=== PATIENT | female | born 1990 | race Caucasian/White ===

== ENCOUNTER 2024-04-05 18:09 | Emergency (ER) | payer OTHER, SELFPAY ==
[2024-04-05 18:19] VITALS: BP 120/75; PULSE 72; TEMP 37.3; O2SAT 99
--- NOTE | 2024-04-05 18:21 | XR_ITS ---
[address] [address] Patient Name: WILBUR HIGGINBOTHAM MRN: [id number] date: 1990 Sex: F Assigned Patient Location: ER Current Patient Location: ED.MAIN Accession/Order Number: [id number] Exam Date: 04/05/2024 18:50 Report Date: 04/05/2024 19:57 At the request of: GOLDY BURTON Procedure: XR hip RT 2V w/ pelvis Exam: Radiographs: XR femur RT 2V, XR hip RT 2V w/ pelvis Reason for exam: right leg pain Comparison: None XR/XR hip RT 2V w/ pelvis IMPRESSION: Unremarkable right hip radiographs. Unremarkable right femur radiographs. Electronically authenticated by: RAJEEV STORY Date: 04/05/2024 19:57
--- NOTE | 2024-04-05 18:21 | XR_ITS ---
[address] [address] Patient Name: WILBUR HIGGINBOTHAM MRN: [id number] date: 1990 Sex: F Assigned Patient Location: ER Current Patient Location: ED.MAIN Accession/Order Number: [id number] Exam Date: 04/05/2024 18:50 Report Date: 04/05/2024 19:57 At the request of: GOLDY BURTON Procedure: XR femur RT 2V Exam: Radiographs: XR femur RT 2V, XR hip RT 2V w/ pelvis Reason for exam: right leg pain Comparison: None XR/XR femur RT 2V IMPRESSION: Unremarkable right hip radiographs. Unremarkable right femur radiographs. Electronically authenticated by: RAJEEV STORY Date: 04/05/2024 19:57
--- NOTE | 2024-04-05 18:23 | ED.GENADUL1 ---
HPI HPI - General Adult General Chief complaint: Extremity Injury, Lower Stated complaint: LEG/HIP PAIN Time Seen by Provider: 04/05/24 18:14 Source: patient Mode of arrival: walk-in History of Present Illness HPI narrative: Patient is a 33-year-old female who ambulated into the emergency department with complaint of right hip and thigh pain that developed today. She denies any mechanism of injury or trauma. She states that she was walking from [place] to [place] and stopped at this hospital due to pain. She does not believe that walking 12.8 miles from [place] to [facility] could have caused her pain, she believes that the right thigh pain started this morning. She denies a possibility of . She has not noticed any swelling, redness of the leg. No peripheral paresthesias. Related Data Home Medications ?Medication ?Instructions ?Recorded ?Confirmed dextroamphetamine-amphetamine ER 50 mg PO DAILY 04/05/24 04/05/24 50 mg capsule,3 bead,ext release 24hr (Mydayis) Previous Rx's ?Medication ?Instructions ?Recorded methocarbamol 750 mg tablet 750 mg PO TID PRN pain #20 tabs 04/05/24 methylprednisolone 4 mg tablets in See Rx Instructions .Route 04/05/24 a dose pack (Medrol (Zach)) .COMPLEX #21 ea Allergies Allergy/AdvReac Type Severity Reaction Status Date / Time ciprofloxacin (From Cipro) Allergy Unknown Verified 04/05/24 18:19 ibuprofen (From Motrin) Allergy Unknown Verified 04/05/24 18:19 naproxen Allergy Unknown Verified 04/05/24 18:19 Opioid HPI Opioid Management Most Recent Opioid Data: No Data to Display Review of Systems ROS Constitutional Denies: fever or chills Ears, nose, mouth, and throat Denies: throat pain or nasal congestion Cardiovascular Denies: chest pain Respiratory Denies: shortness of breath Gastrointestinal Denies: abdominal pain, nausea or vomiting Musculoskeletal Reports: extremity pain and joint pain; Denies: back pain or neck pain Integumentary/Breast Denies: rash Neurological Denies: numbness in extremities or weakness in extremities Hematologic/Lymphatic Denies: easy bruising or easy bleeding Exam Narrative Exam Narrative: Gen.: Awake, alert, in no distress, spastic movements of the head and upper extremities Head: Normocephalic, atraumatic ENT: Moist mucous membranes Respiratory: No respiratory distress Extremities: Patient is noted to have normal hip flexion and knee flexion of the right lower extremity, no redness or swelling noted of the right thigh. Thighs are soft and compressible bilaterally. Normal dorsiflexion and plantarflexion of the lower extremities. Diffuse tenderness of the right lateral hip Psych: Normal mood and affect Neuro: No focal neuro deficit Skin: Warm, dry, intact Constitutional Vital Signs, click to edit/add: Last Vital Signs Temp 99.1 F 04/05/24 18:19 Pulse 72 04/05/24 18:19 Resp 16 04/05/24 18:19 BP 120/75 04/05/24 18:19 Pulse Ox 99 04/05/24 18:19 O2 Del Method Room Air 04/05/24 18:19 Course Vital Signs Vital signs: Vital Signs Temperature 99.1 F 04/05/24 18:19 Pulse Rate 72 04/05/24 18:19 Respiratory Rate 16 04/05/24 18:19 Blood Pressure 120/75 04/05/24 18:19 Pulse Oximetry 99 04/05/24 18:19 Oxygen Delivery Method Room Air 04/05/24 18:19 Temperature 99.1 F 04/05/24 18:19 Pulse Rate 72 04/05/24 18:19 Respiratory Rate 16 04/05/24 18:19 Blood Pressure 120/75 04/05/24 18:19 Pulse Oximetry 99 04/05/24 18:19 Oxygen Delivery Method Room Air 04/05/24 18:19 Medical Decision Making MDM Narrative Medical decision making narrative: Patient was kicked out of her mother's home this morning. She ambulated 13 miles to this emergency department from [facility]. She is hemodynamically stable with no focal neurodeficits. X-rays of the right femur, right hip and pelvis with no evidence of acute process. These were reviewed by myself and attending physician. Patient was treated with Solu-Medrol and Norflex in the ER. She requested a sandwich. Patient will be discharged with a muscle relaxant and steroid taper to follow-up with PCP. Exam is consistent with musculoskeletal pain. Return to the ER if symptoms change or worsen SHARED APC VISIT, PHYSICIAN ATTESTATION: [id number] I performed a substantive part of the MDM during the patient?s E/M visit. I personally evaluated and examined the patient. I personally made or approved the documented management plan and acknowledge its risk of complications. Medical Records Medical records reviewed: Yes I reviewed the patient's medical records Discharge Plan Discharge Chief Complaint: Extremity Injury, Lower Clinical Impression: Pain in right leg Patient Disposition: Home, Self-Care Time of Disposition Decision: 19:43 Condition: Good Prescriptions / Home Meds: New methocarbamol 750 mg tablet 750 mg PO TID PRN (Reason: pain) Qty: 20 0RF methylprednisolone [Medrol (Zach)] 4 mg tablets,dose pack See Rx Instructions .ROUTE .COMPLEX Qty: 21 0RF Rx Instructions: Taper as directed No Action dextroamphetamine-amphetamine [Mydayis] 50 mg capsule, ER triphasic 24 hr 50 mg PO DAILY Print Language: Arabic Instructions: Leg Pain (ED) Referrals: Physician,Non-Staff, MD [Physician] - 1 week
[2024-04-05] MEDS: METHYLPREDNISOLONE SOD SUCC PF 125 MG/2 ML VIAL IM (18:43)
[2024-04-05] MEDS: ORPHENADRINE 60 MG/ 2 ML VIAL IM (18:44)
--- NOTE | 2024-04-05 19:08 | PC.NURSE ---
Pt lying with S.O. on the cot. No s/s of distress noted.
== END 2024-04-05 20:01 | disposition home or self-care (01) ==
PROVIDERS: Emergency Provider Emergency Medicine; PCP Nurse Practitioner
DX: M79.604 Pain in right leg (principal)
CPT/HCPCS: 73502; 73552; 96372; 99285; J2360; J2919